=== PATIENT | male | born 1955 | race Caucasian/White ===

== ENCOUNTER 2016-07-12 09:46 | Day surgery (SDC) | payer OTHER ==
[2016-07-12 10:25] VITALS: RESP 16
[2016-07-12 12:08] VITALS: BP 137/83; PULSE 52; TEMP 97.4; O2SAT 97
== END 2016-07-12 12:25 | disposition home or self-care (01) | DRG 951 ==
LOC: SURG 09:46
PROVIDERS: ATTEND Surgery
DX: Z12.11 Encounter for screening for malignant neoplasm of colon (principal); K52.9 Noninfective gastroenteritis and colitis, unspecified; Z85.048 Personal history of other malignant neoplasm of rectum, rectosigmoid junction, and anus; Z98.0 Intestinal bypass and anastomosis status
CPT/HCPCS: J2001; J2704